=== PATIENT | male | born 1970 | race Caucasian/White ===

== ENCOUNTER 2022-09-20 13:41 | Emergency (ER) | payer BC ==
[2022-09-20 14:14] VITALS: BMI 22.3
[2022-09-20] MEDS ORDERED: diazePAM CARPU-JECT 10 MG/2 ML DISP.SYRIN IVPUSH ONE (14:31)
[2022-09-20] MEDS ORDERED: ONDANSETRON 4 MG/2 ML VIAL IVPUSH ONE (14:33)
[2022-09-20] MEDS ORDERED: diazePAM CARPU-JECT 10 MG/2 ML DISP.SYRIN IM ONE (14:34)
[2022-09-20] MEDS ORDERED: PANTOPRAZOLE SODIUM 40 MG VIAL IVPUSH ONE (14:35)
[2022-09-20] MEDS ORDERED: LORazepam 2 MG/ML SDV VIAL IM ONE (14:42)
[2022-09-20] MEDS ORDERED: FOLIC ACID INJECTION - 1 MG, THIAMINE HCL 100 MG, MULTIVIT INJECTION ADULT 10 ML in SOD... IVPB ONE (15:00)
[2022-09-20] MEDS ORDERED: PANTOPRAZOLE SODIUM 40 MG VIAL ONE (15:11)
[2022-09-20] MEDS ORDERED: ONDANSETRON 4 MG/2 ML VIAL ONE (15:11)
[2022-09-20 15:27] LABS: BASO % 0.6 % (0-2.0); HEMATOCRIT 43.3 % (35.4-49); HEMOGLOBIN 14.6 GM/dL (11.7-16.9); LYMPH % 20.1 % (8-40); MCH 31.6 pg (25.7-33.7); MCHC 33.7 g/dl (32.0-35.9); MEAN CELL VOLUME 93.6 fl (80-96); MEAN PLT VOLUME 9.4 fl (7.5-11.1); MONO % 5.4 % (3.8-10.2); NEUT % 73.9 % (42.8-82.8); PLATELET COUNT 99 10^3/uL (134-434); RBC 4.63 M/mm3 (4.00-5.60); RDW 13.8 % (11.9-15.9); WHITE BLOOD COUNT 7.6 K/mm3 (4.0-10.0)
[2022-09-20 15:35] LABS: INR 1.08 (0.83-1.09); PROTHROMBIN TIME (PATIENT) 12.4 SEC (9.7-13.0)
[2022-09-20 15:37] LABS: ACTIVATED PTT 23.3 SECONDS (25.2-36.5)
[2022-09-20 15:48] LABS: CHLORIDE 70 mmol/L (98-107); SODIUM 125 mmol/L (136-145)
[2022-09-20] MEDS ORDERED: SODIUM CHLORIDE 0.9% 500 ML INFUS.BAG IV ONE ×2 (15:49→16:39)
[2022-09-20 15:50] LABS: CALCIUM 9.2 mg/dL (8.5-10.1)
[2022-09-20 15:51] LABS: ALBUMIN 3.7 g/dl (3.4-5.0); ANION GAP 31 MMOL/L (8-16); BLOOD UREA NITROGEN 19.8 mg/dL (7-18); CO2 23 mmol/L (21-32); LIPASE 328 U/L (73-393); MAGNESIUM 1.8 mg/dL (1.8-2.4)
[2022-09-20] MEDS ORDERED: DEXAMETHASONE SOD PHOSPHATE 10 MG/1 ML VIAL IVPUSH ONE (15:53)
[2022-09-20 15:54] LABS: CREATININE 1.1 mg/dL (0.55-1.3); PHOSPHOROUS 5.5 mg/dL (2.5-4.9); SGOT/AST 166 U/L (15-37); SGPT/ALT 125 U/L (13-61)
[2022-09-20 15:55] LABS: BILIRUBIN,TOTAL 1.2 mg/dL (0.2-1)
[2022-09-20] MEDS ORDERED: diazePAM CARPU-JECT 10 MG/2 ML DISP.SYRIN ONE (15:56)
[2022-09-20 15:57] LABS: ALK PHOS 111 U/L (45-117)
[2022-09-20 16:02] LABS: GLUCOSE,RANDOM 558 mg/dL (74-106)
[2022-09-20] MEDS ORDERED: CEFTRIAXONE 1,000 MG in DEXTROSE 5%-WATER - 50 ML IVPB ONE (16:17)
[2022-09-20] MEDS ORDERED: FLUCONAZOLE 200 MG/NS 100 ML IVPB ONE (16:17)
[2022-09-20 16:28] LABS: VENOUS BASE EXCESS -2.7 mmol/L (-2-2); VENOUS O2 SATURATION 84.2 % (70-80); VENOUS PCO2 33.5 mmHg (38-52); VENOUS PH 7.417 (7.310-7.410)
[2022-09-20] MEDS ORDERED: DEXAMETHASONE SOD PHOSPHATE 10 MG/1 ML VIAL ONE (16:40)
[2022-09-20] MEDS ORDERED: CEFTRIAXONE 1 GM/50 ML BAG ONE (16:43)
[2022-09-20 17:49] VITALS: BP 147/79; PULSE 89; RESP 22; TEMP 99.2
== END 2022-09-20 17:53 | disposition short-term general hospital (02) ==
LOC: JER 13:41
PROC: 3E03329 Introduction of Other Anti-infective into Peripheral Vein, Percutaneous Approach (ICD-10-PCS; principal; 2022-09-20)
PROC: 3E033GC Introduction of Other Therapeutic Substance into Peripheral Vein, Percutaneous Approach (ICD-10-PCS; 2022-09-20)
PROC: 3E033GC Introduction of Other Therapeutic Substance into Peripheral Vein, Percutaneous Approach (ICD-10-PCS; 2022-09-20)
PROC: 3E033GC Introduction of Other Therapeutic Substance into Peripheral Vein, Percutaneous Approach (ICD-10-PCS; 2022-09-20)
PROC: 3E023NZ Introduction of Analgesics, Hypnotics, Sedatives into Muscle, Percutaneous Approach (ICD-10-PCS; 2022-09-20)
DX: F10.129 Alcohol abuse with intoxication, unspecified (principal)
CPT/HCPCS: 36415; 70491-TC; 71045-TC-FY; 71260-TC; 80053; 82803; 82962; 83690; 83735; 84100; 84484; 85025; 85610; 85730; 86900; 99283-25; J1100; Q9967